=== PATIENT | female | born 1985 | race Caucasian/White ===

== ENCOUNTER 2021-12-10 23:17 | Outpatient (CLI) | payer OTHER ==
[~2021-12-10 23:17] MED LIST: COLACE 100MG C100 MG PO; IBUPROFEN600 MG PO; LORTAB 5-325 M1 EACH PO
== END 2021-12-11 01:33 | disposition home or self-care (01) ==
LOC: GENOP 23:17
DX: O36.8130 Decreased fetal movements, third trimester, not applicable or unspecified (principal); O99.891 Other specified diseases and conditions complicating pregnancy; R10.9 Unspecified abdominal pain; Z3A.35 35 weeks gestation of pregnancy
CPT/HCPCS: 81001; G0463

== ENCOUNTER 2021-12-19 11:17 | Outpatient (CLI) | payer OTHER ==
[2021-12-19 11:59] LABS: HEMOGLOBIN 12.3 gm/dl (12.3-15.3); RED BLOOD COUNT 3.65 M/UL (4.00-5.10); WHITE BLOOD COUNT 12.3 K/UL (4.5-11.0)
[2021-12-20] MEDS ORDERED: IBUPROFEN600 MG PO (08:02)
[2021-12-20] MEDS ORDERED: HYDROCODON-ACE1 EAC4 PO (08:02)
[2021-12-20] MEDS ORDERED: DOCUSATE SODIU100 MG PO (08:02)
== END 2021-12-19 12:15 | disposition home or self-care (01) ==
LOC: GENOP 11:17
PROVIDERS: Obstetrics & Gynecology
DX: Z01.812 Encounter for preprocedural laboratory examination (principal)
CPT/HCPCS: 36415; 81001; 85025

== ENCOUNTER 2021-12-20 05:38 | Inpatient (IN) | payer OTHER ==
[~2021-12-20] VITALS: Ht 147.3 cm; Wt 58.5 kg
[2021-12-20] MEDS ORDERED: IBUPROFEN600 MG PO (08:02)
[2021-12-20] MEDS ORDERED: HYDROCODON-ACE1 EAC4 PO (08:02)
[2021-12-20] MEDS ORDERED: DOCUSATE SODIU100 MG PO (08:02)
[2021-12-21 03:10] LABS: HEMOGLOBIN 10.6 gm/dl (12.3-15.3)
== END 2021-12-22 14:15 | disposition home or self-care (01) | DRG 788 ==
LOC: OB 05:38
PROVIDERS: ADMIT Obstetrics & Gynecology
PROC: 3E0234Z Introduction of Serum, Toxoid and Vaccine into Muscle, Percutaneous Approach (ICD-10-PCS; 2021-12-20)
PROC: 3E02340 Introduction of Influenza Vaccine into Muscle, Percutaneous Approach (ICD-10-PCS; 2021-12-20)
PROC: 10D00Z1 Extraction of Products of Conception, Low, Open Approach (ICD-10-PCS; principal; 2021-12-20 07:30)
PROC: 4A1HXCZ Monitoring of Products of Conception, Cardiac Rate, External Approach (ICD-10-PCS; principal; 2021-12-20 07:30)
DX: O34.211 Maternal care for low transverse scar from previous cesarean delivery (principal); Z37.0 Single live birth; O36.5930 Maternal care for other known or suspected poor fetal growth, third trimester, not applicable or unspecified; O99.344 Other mental disorders complicating childbirth; Z3A.37 37 weeks gestation of pregnancy; Z88.0 Allergy status to penicillin; Z88.8 Allergy status to other drugs, medicaments and biological substances; Z91.040 Latex allergy status; F31.9 Bipolar disorder, unspecified; Z28.310 Unvaccinated for COVID-19; Z83.3 Family history of diabetes mellitus; Z82.49 Family history of ischemic heart disease and other diseases of the circulatory system; Z23 Encounter for immunization
CPT/HCPCS: 36415; 36600; 82800; 85014; 85018; 90471; 90472; 90686; 90715; C9113; J1170; J1580; J2405; J2590; J2704; J3010